=== PATIENT | female | born 2000 | race Caucasian/White ===

== ENCOUNTER 2021-05-10 14:37 | Observation (INO) ==
[2021-05-10 15:18] LABS: Hematocrit (blood only) 35.8 % (37-47); Hemoglobin 11.3 g/dL (12.0-16.0); Mean Corpuscular Hemoglobin 22.7 pg (25-34); Mean Corpuscular Hgb Conc 31.6 g/dL (32-36); Platelet Count 436 K/uL (130-400); RDW Coefficient of Variation 14.3 % (11.5-14.5); RDW Standard Deviation 37.6 fL (36.4-46.3); Red Blood Count 4.97 M/uL (4.2-5.4); White Blood Count 11.24 K/uL (4.8-10.8)
--- NOTE | 2021-05-10 15:25 | XRay Report ---
KUB CLINICAL HISTORY: Generalized abdominal pain. Constipation. FINDINGS: 2 AP supine abdominal radiographs are obtained. No prior studies are available for comparis on at the time of dictation. There is a nonobstructed abdominal bowel gas pattern. No significant fec al retention is seen throughout the colon. No evidence of intraperitoneal free air is seen on these s upine images. There is no radiographic evidence of nephrolithiasis. An indeterminant 2.2 cm radiodens ity projects over the right upper quadrant overlying the expected location of the adrenal gland. The bony structures appear intact. IMPRESSION: 1. No acute abnormality is identified. 2. A 2.2 cm calcification projects over the right upper quadrant overlying the expected location of t he adrenal gland. This could represent an adrenal calcification, or possibly hyperdense ingested mate rial. Clinical correlation will be required. Consider a follow-up radiograph in several days' time fo r reevaluation. Electronically signed by: Erich Lima M.D. 05/10/2021 3:23 PM
[2021-05-10 15:36] LABS: Calcium 9.2 mg/dl (8.5-10.1); Creatinine Clr Calc Pharmacy 129.4 ml/min; Est GFR (African American) 143.5 ml/min; Est GFR (Non-African American) 123.9 ml/min; Potassium 3.7 mmol/L (3.5-5.1)
[2021-05-10] MEDS ORDERED: ONDANSETRON INJ 2 MG/ML 2 ML VIAL IV STA ×2 (16:08→20:10)
[2021-05-10] MEDS ORDERED: SODIUM CHLORIDE 0.9% 1000ML 1,000 ML IV STA ×2 (16:08→20:10)
[2021-05-10 16:39] LABS: Albumin Level 3.9 gm/dl (3.4-5.0); Bilirubin,Total 0.4 mg/dl (0.2-1.0); Total Protein 7.7 gm/dl (6.0-8.3)
[2021-05-10 18:28] LABS: Appearance Urine Clear (Clear); Bilirubin Urine Negative (Negative); Blood Urine Negative (Negative); Color Urine Yellow; Glucose Urine UA Negative (Negative); Ketones Urine Trace (Negative); Leukocyte Esterase Urine Negative (Negative); Nitrite Urine Negative (Negative); Protein Urine Negative (Negative); Specific Gravity Urine 1.011 (1.000-1.030); Urobilinogen Urine Negative (Negative)
[2021-05-10] MEDS ORDERED: OPTIRAY 320 100ml IV ONE (18:47)
--- NOTE | 2021-05-10 18:47 | Emergency Department Note ---
Impression & Plan Bilateral lower abdominal pain, Leukocytosis ED Provider Note INFORMANT: Patient ED PROVIDER(S): Reddy Marshall MD CHIEF COMPLAINT: Abdominal pain PLAN: Disposition: Admitted Condition: Good Outpatient prescription management: none Referral: None MEDICAL DECISION MAKING: Patient presented to emergency room because of lower abdominal pain and concerns about possible bowel blockage. She has not had a surgical history of our known history of SBO. She had lower abdominal discomfort. Blood work was obtained and she was noted to have a mild leukocytosis. Chemistry panel including LFTs and lipase was negative. Urinalysis unremarkable. Patient not . KUB questioned in right upper quadrant calcification. The patient was prepped for CT imaging. Patient did receive IV normal saline. Patient underwent CT imaging and this showed significant inflammation and inflammatory change around the terminal ileum. Radiology raised concerns for phonatory bowel disease. No per foration noted. The patient was then noted to feel feverish. Her temperature was taken and was 37.9. Because of this she was given a dose of IV Toradol. She was reassessed. Maintenance fluids were started and the patient was noting some more nausea. She was given IV Zofran. Case was discussed with Dr. Jaffe of gastroenterology. In light of the CT findings and fever it was felt that blood cultures and observation with consultation in the hospital was most appropriate. Blood cultures and procalcitonin ordered. Stool studies including C. difficile ordered. Patient was in agreement with plan. Consultation was made with Dr. Michael Mcgill of the [facility] service. Patient was evaluated in the ER for further management. Triage Nursing notes reviewed and agree them. Vital Signs: reviewed and remarkable for no significant abnormalities Differential diagnosis: Appendicitis, IBS, constipation, impaction, obstruction, ovarian cyst, ovarian torsion, ectopic , TOA, PID, infections, diverticulitis, UTI, mes enteric ischemia, aortic pathology, inflammatory bowel disease, renal colic, PUD, pancreatitis, biliary pathology, hernia, volvulus, constipation, as well as other pathologies. Diagnostics interpreted by me: ECG: none Cardiac Monitoring: none Imaging studies: HPI: The patient is a 20 year old female who presents to the Emergency Room with complaints of abdominal pain and concerns for possible bowel blockage. Patient notes a history of an impaction but denies any abdominal surgeries or history of SBO. Started for about a week. And is persisting. The patient also notes the following associated symptoms, mild lower back discomfort, nausea, decreased appetite, intermittent constipation. The patient has found no relieving factors. Current pain is rated as 4/10. Pt denies LOC, headache, fevers, chills, diaphoresis, visual changes, neck pain, chest pain, breathing difficulties, vomiting, melena, hematochezia, urinary symptoms, numbness, weak ness, lymphadenopathy, rash, or other complaints. ROS: See above HPI for pertinent positives & negatives. A total of 10 systems reviewed and were otherwise negative. PAST MEDICAL HISTORY:See Below , patient denies PAST SURGICAL HISTORY:See Below, patient denies FAMILY HISTORY:See Below SOCIAL HISTORY:See Below, [facility] student [place] MEDICATIONS:See Below ALLERGIES:See Below VITALS:See Below PHYSICAL EXAMINATION: GENERAL: Awake, alert, mildly uncomfortable-appearing, in no distress HENT: Normocephalic, atraumatic. Oropharynx unremarkable. EYES: Normal conjunctiva. Sclera non-icteric. NECK: Inspection normal. Non-tender. Supple. No nuchal rigidity. FROM. No masses. RESPIRATORY: Clear to auscultation. No wheezes. No rales. Normal respiratory effort. CARDIAC: Normal rate. Normal rhythm. No murmurs. No rubs. Extremities warm and well perfused. Pulses equal. No JVD. GI: Soft, non-distended. Mild bilateral lower tenderness to palpation. No rebound or guarding. No masses. RECTAL: Deferred. MUSCULOSKELETAL: Atraumatic. Chest examination reveals no tenderness. The back is symmetrical on inspection without obvious abnormality. There is no CVA tenderness to palpation. No joint edema. LOWER EXTREMITIES: Calves are equal size bilaterally and non-tender. No edema. No discoloration. NEURO: Normal sensorium. No sensory or motor deficits noted. SKIN: No rash or jaundice noted. Reddy Marshall MD Past Med/Surg History Social History Smoking Status: Never smoker Feels Safe at Home: Yes Allergies Allergies Allergy/AdvReac Type Severity Reaction Status Date / Time apple Allergy Severe SEE COMMENT Verified 05/10/21 16:57 carrot Allergy Severe SEE COMMENT Verified 05/10/21 16:57 celery Allergy Severe SEE COMMENT Verified 05/10/21 16:57 hoyt Allergy Severe SEE COMMENT Verified 05/10/21 16:57 kiwi Allergy Severe SEE COMMENT Verified 05/10/21 16:57 tree nut Allergy Severe SEE COMMENT Verified 05/10/21 16:57 pollen extracts Allergy Intermediate ITCHY Verified 05/10/21 16:57 EYES, SNEEZING, CONGESTION shellfish derived Allergy Unknown POSITIVE Verified 05/10/21 16:57 ALLERGY TEST A SMALL CHILD Home Meds Home Medications Medication Instructions Recorded Confirmed No Known Home Medications 05/10/21 05/10/21 Results & Data (ED) Vital Signs Vital Signs - 24 hr 05/10/21 14:42 05/10/21 16:17 05/10/21 18:00 Temperature 36.6 C Temperature Source Temporal Artery Scan Pulse Rate 129 H Pulse Rate [Right Finger] 109 H 99 H Pulse Rhythm [Right Finger] Pulse Strength [Right Finger] Respiratory Rate 18 18 18 Respiratory Effort / Characteristics Non-Labored Spontaneous Non-Labored Spontaneous Respiratory Depth Normal Normal Respiratory Pattern Blood Pressure 125/78 Blood Pressure [Right Arm] 119/80 123/66 Blood Pressure Mean 93 Blood Pressure Mean [Right Arm] 93 85 Blood Pressure Position Sitting Blood Pressure Position [Right Arm] Lying Pulse Oximetry 97 98 99 Oxygen Delivery Method Room Air Room Air Sepsis Recent Fever Within 48 Hours No Sepsis New/Unexplained Change in Mental Status No Sepsis Action Taken by Nursing No Action Required 05/10/21 18:59 05/10/21 20:00 Temperature 37.9 C H 37.1 C Temperature Source Oral Oral Pulse Rate Pulse Rate [Right Finger] 18 L 75 Pulse Rhythm [Right Finger] Regular Regular Pulse Strength [Right Finger] Normal Normal Respiratory Rate 18 18 Respiratory Effort / Characteristics Non-Labored Spontaneous Non-Labored Spontaneous Respiratory Depth Normal Normal Respiratory Pattern Regular Blood Pressure Blood Pressure [Right Arm] 119/65 121/64 Blood Pressure Mean Blood Pressure Mean [Right Arm] 83 83 Blood Pressure Position Blood Pressure Position [Right Arm] Sitting Lying Pulse Oximetry 98 100 Oxygen Delivery Method Room Air Room Air Sepsis Recent Fever Within 48 Hours Sepsis New/Unexplained Change in Mental Status Sepsis Action Taken by Nursing Laboratory Data Result diagrams: 05/10/21 15:05 05/10/21 15:05 Lab Results 05/10/21 05/10/21 05/10/21 Range/Units 15:05 15:05 15:05 WBC 11.24 H (4.8-10.8) K/uL RBC 4.97 (4.2-5.4) M/uL Hgb 11.3 L (12.0-16.0) g/dL Hct 35.8 L (37-47) % MCV 72.0 L (80-100) fL MCH 22.7 L (25-34) pg MCHC 31.6 L (32-36) g/dL RDW Std Deviation 37.6 (36.4-46.3) fL RDW Coeff of Leo 14.3 (11.5-14.5) % Plt Count 436 H (130-400) K/uL MPV 8.0 (7.4-10.4) fL Sodium 136 (136-145) mmol/L Potassium 3.7 (3.5-5.1) mmol/L Chloride 100 (98-107) mmol/L Carbon Dioxide 27 (21-32) mmol/L Anion Gap 9 (3-11) BUN 7 (6-23) mg/dl Creatinine 0.70 (0.6-1.2) mg/dl Est Cr Clr Drug Dosing 129.4 ml/min Est GFR ( Amer) 143.5 ml/min Est GFR (Non-Af Amer) 123.9 ml/min BUN/Creatinine Ratio 10.0 (10-20) Glucose 96 (70-99(Fasting)) mg/dl Calcium 9.2 (8.5-10.1) mg/dl Total Bilirubin 0.4 (0.2-1.0) mg/dl Direct Bilirubin 0.0 (0-0.2) mg/dl AST 10 L (13-39) U/L ALT 8 (7-52) U/L Alkaline Phosphatase 81 (34-104) U/L C-Reactive Protein (0-0.5) mg/dl Total Protein 7.7 (6.0-8.3) gm/dl Albumin 3.9 (3.4-5.0) gm/dl Lipase 14 (11-82) U/L Procalcitonin (0-0.5) ng/ml Urine Color Urine Appearance (Clear) Urine pH (4.5-7.5) Ur Specific [place] (1.000-1.030) Urine Protein (Negative) Urine Glucose (UA) (Negative) Urine Ketones (Negative) Urine Blood (Negative) Urine Nitrite (Negative) Urine Bilirubin (Negative) Urine Urobilinogen (Negative) Ur Leukocyte Esterase (Negative) POC Ur Test (NEG) SARS-CoV-2, RNA, NAAT (NEGATIVE) 05/10/21 05/10/21 05/10/21 Range/Units 15:05 18:20 18:20 WBC (4.8-10.8) K/uL RBC (4.2-5.4) M/uL Hgb (12.0-16.0) g/dL Hct (37-47) % MCV (80-100) fL MCH (25-34) pg MCHC (32-36) g/dL RDW Std Deviation (36.4-46.3) fL RDW Coeff of Leo (11.5-14.5) % Plt Count (130-400) K/uL MPV (7.4-10.4) fL Sodium (136-145) mmol/L Potassium (3.5-5.1) mmol/L Chloride (98-107) mmol/L Carbon Dioxide (21-32) mmol/L Anion Gap (3-11) BUN (6-23) mg/dl Creatinine (0.6-1.2) mg/dl Est Cr Clr Drug Dosing ml/min Est GFR ( Amer) ml/min Est GFR (Non-Af Amer) ml/min BUN/Creatinine Ratio (10-20) Glucose (70-99(Fasting)) mg/dl Calcium (8.5-10.1) mg/dl Total Bilirubin (0.2-1.0) mg/dl Direct Bilirubin (0-0.2) mg/dl AST (13-39) U/L ALT (7-52) U/L Alkaline Phosphatase (34-104) U/L C-Reactive Protein 15.32 H (0-0.5) mg/dl Total Protein (6.0-8.3) gm/dl Albumin (3.4-5.0) gm/dl Lipase (11-82) U/L Procalcitonin (0-0.5) ng/ml Urine Color Yellow Urine Appearance Clear (Clear) Urine pH 6.0 (4.5-7.5) Ur Specific [place] 1.011 (1.000-1.030) Urine Protein Negative (Negative) Urine Glucose (UA) Negative (Negative) Urine Ketones Trace H (Negative) Urine Blood Negative (Negative) Urine Nitrite Negative (Negative) Urine Bilirubin Negative (Negative) Urine Urobilinogen Negative (Negative) Ur Leukocyte Esterase Negative (Negative) POC Ur Test NEG (NEG) SARS-CoV-2, RNA, NAAT (NEGATIVE) 05/10/21 05/10/21 Range/Units 20:40 20:46 WBC (4.8-10.8) K/uL RBC (4.2-5.4) M/uL Hgb (12.0-16.0) g/dL Hct (37-47) % MCV (80-100) fL MCH (25-34) pg MCHC (32-36) g/dL RDW Std Deviation (36.4-46.3) fL RDW Coeff of Leo (11.5-14.5) % Plt Count (130-400) K/uL MPV (7.4-10.4) fL Sodium (136-145) mmol/L Potassium (3.5-5.1) mmol/L Chloride (98-107) mmol/L Carbon Dioxide (21-32) mmol/L Anion Gap (3-11) BUN (6-23) mg/dl Creatinine (0.6-1.2) mg/dl Est Cr Clr Drug Dosing ml/min Est GFR ( Amer) ml/min Est GFR (Non-Af Amer) ml/min BUN/Creatinine Ratio (10-20) Glucose (70-99(Fasting)) mg/dl Calcium (8.5-10.1) mg/dl Total Bilirubin (0.2-1.0) mg/dl Direct Bilirubin (0-0.2) mg/dl AST (13-39) U/L ALT (7-52) U/L Alkaline Phosphatase (34-104) U/L C-Reactive Protein (0-0.5) mg/dl Total Protein (6.0-8.3) gm/dl Albumin (3.4-5.0) gm/dl Lipase (11-82) U/L Procalcitonin < 0.05 (0-0.5) ng/ml Urine Color Urine Appearance (Clear) Urine pH (4.5-7.5) Ur Specific [place] (1.000-1.030) Urine Protein (Negative) Urine Glucose (UA) (Negative) Urine Ketones (Negative) Urine Blood (Negative) Urine Nitrite (Negative) Urine Bilirubin (Negative) Urine Urobilinogen (Negative) Ur Leukocyte Esterase (Negative) POC Ur Test (NEG) SARS-CoV-2, RNA, NAAT NEGATIVE (NEGATIVE) Administered Medications Sodium Chloride (Nss 1000ml) 1,000 mls @ 125 mls/hr IV .Q8H STA Stop: 05/11/21 04:09 Last Admin: 05/10/21 20:14 Dose: 125 mls/hr Documented by: [id number] Discontinued Medications Sodium Chloride (Nss 1000ml) 1,000 mls @ 999 mls/hr IV .Q1H1M STA Stop: 05/10/21 17:08 Last Infusion: 05/10/21 19:48 Dose: 0 mls/hr Documented by: [id number] Infusion: 05/10/21 17:21 Dose: 0 mls/hr Documented by: [id number] Admin: 05/10/21 16:15 Dose: 999 mls/hr Documented by: [id number] Ioversol (Optiray 320 100ml) 93 ml IV ONCE ONE Stop: 05/10/21 18:48 Last Admin: 05/10/21 18:53 Dose: 93 ml Documented by: [id number] Ketorolac Tromethamine (Ketorolac Tromethamine 15 Mg/Ml Vial) 15 mg IV NOW STA Stop: 05/10/21 19:05 Last Admin: 05/10/21 19:09 Dose: 15 mg Documented by: [id number] Ondansetron HCl (Ondansetron Inj 2 Mg/Ml 2 Ml Vial) 4 mg IV NOW STA Stop: 05/10/21 16:09 Last Admin: 05/10/21 16:15 Dose: 4 mg Documented by: [id number] Ondansetron HCl (Ondansetron Inj 2 Mg/Ml 2 Ml Vial) 4 mg IV NOW STA Stop: 05/10/21 20:11 Last Admin: 05/10/21 20:14 Dose: 4 mg Documented by: [id number] Imaging Data Radiologist's Impression: KUB X-Ray 05/10/21 14:46 KUB CLINICAL HISTORY: Generalized abdominal pain. Constipation. FINDINGS: 2 AP supine abdominal radiographs are obtained. No prior studies are available for comparison at the time of dictation. There is a nonobstructed abdominal bowel gas pattern. No significant fecal retention is seen throughout the colon. No evidence of intraperitoneal free air is seen on these supine images. There is no radiographic evidence of nephrolithiasis. An indeterminant 2.2 cm radiodensity projects over the right upper quadrant overlying the expected location of the adrenal gland. The bony structures appear intact. IMPRESSION: 1. No acute abnormality is identified. 2. A 2.2 cm calcification projects over the right upper quadrant overlying the expected location of the adrenal gland. This could represent an adrenal calcification, or possibly hyperdense ingested material. Clinical correlation will be required. Consider a follow-up radiograph in several days' time for reevaluation. Electronically signed by: Erich Lima M.D. 05/10/2021 3:23 PM Abdomen/Pelvis CT 05/10/21 16:08 CT abd pelvis oral and IV con CLINICAL HISTORY: lower abd pain COMPARISON STUDY: No previous studies for comparison. CT DOSE: 351.71 mGy.cm TECHNIQUE: Standard CT of the Abdomen and Pelvis was performed with IV contrast. A dose lowering technique was utilized adhering to the principles of ALARA. Contrast Volume: Optiray 320, 93 ml. The patient received oral contrast. FINDINGS: Lung base: The lung bases are clear. Abdominal cavity: There is no evidence for abdominal mass, adenopathy or ascites. Liver: There is homogeneous attenuation of the liver parenchyma. There is no evidence for enhancing mass lesion. Spleen: There is homogeneous attenuation of the splenic parenchyma. There is no enhancing mass lesion. Pancreas: There is homogeneous attenuation of the pancreatic parenchyma. There is no evidence for mass lesion or peripancreatic fluid collection. Gall Bladder: The gallbladder is well distended with no evidence for intraluminal calculi, wall thickening or pericholecystic edema. Adrenal glands: There is abnormal calcification of the right adrenal gland when compared to the left. There is no evidence for enhancing mass lesion. Kidneys: There is homogeneous attenuation of the renal parenchyma bilaterally. There is no evidence for renal calculus or hydronephrosis. There is no evidence for enhancing mass. Bowel: Oral contrast present within the stomach, throughout the small bowel and into the cecum. There is very prominent mucosal thickening present involving the distal 15 cm of the distal and terminal ileum. These findings are most characteristic of Crohn's disease. The remaining bowel loops are normally placed within the abdomen and pelvis without evidence for dilatation or obstruction. There is no evidence for mass lesion. There are no other inflammatory changes present. There is no evidence for free air. There is a normal appendix in the right lower quadrant. Bladder: The bladder is within normal limits with no evidence for focal mass, calculus or diverticulum. : There is no evidence for pelvic mass or adenopathy. There is small to moderate amount free fluid seen within the cul-de-sac which is most likely physiologic. There are cystic changes of the ovaries bilaterally. Vasculature: There is no evidence for aneurysmal dilatation of the abdominal aorta. Osseous structures: There is no acute osseous pathology. IMPRESSION: 1. Diffuse mucosal thickening involving the distal 15 cm of the distal and terminal ileum with the findings most characteristic of the presence of Crohn's disease. 2. Normal appendix. 3. Additional nonacute findings are delineated above. ACT 112: Negative or not required by law. Electronically signed by: Gm Hyatt M.D. 05/10/2021 7:27 PM Discharge Plan Visit Data Chief Complaint: Flank Pain Stated Complaint: LOWER ABDOMINAL AND BACK PAIN, LOSS OF APPETITE ED Provider: Reddy Marshall Discharge Problem: Bilateral lower abdominal pain, Leukocytosis Forms Stand Alone Forms: [facility] Prescriptions Prescriptions: No Action No Known Home Medications RF: 0 Referrals Referrals: PCP,NO [Primary Care Provider] -
[2021-05-10] MEDS ORDERED: KETOROLAC TROMETHAMINE 15 MG/ML VIAL IV STA (19:04)
--- NOTE | 2021-05-10 19:28 | CT Scan Report ---
CT abd pelvis oral and IV con CLINICAL HISTORY: lower abd pain COMPARISON STUDY: No previous studies for comparison. CT DOSE: 351.71 mGy.cm TECHNIQUE: Standard CT of the Abdomen and Pelvis was performed with IV contrast. A dose lowering srinivas hnique was utilized adhering to the principles of ALARA. Contrast Volume: Optiray 320, 93 ml. The patient received oral contrast. FINDINGS: Lung base: The lung bases are clear. Abdominal cavity: There is no evidence for abdominal mass, adenopathy or ascites. Liver: There is homogeneous attenuation of the liver parenchyma. There is no evidence for enhancing m ass lesion. Spleen: There is homogeneous attenuation of the splenic parenchyma. There is no enhancing mass lesion . Pancreas: There is homogeneous attenuation of the pancreatic parenchyma. There is no evidence for mas s lesion or peripancreatic fluid collection. Gall Bladder: The gallbladder is well distended with no evidence for intraluminal calculi, wall thick ening or pericholecystic edema. Adrenal glands: There is abnormal calcification of the right adrenal gland when compared to the left. There is no evidence for enhancing mass lesion. Kidneys: There is homogeneous attenuation of the renal parenchyma bilaterally. There is no evidence f or renal calculus or hydronephrosis. There is no evidence for enhancing mass. Bowel: Oral contrast present within the stomach, throughout the small bowel and into the cecum. There is very prominent mucosal thickening present involving the distal 15 cm of the distal and terminal i leum. These findings are most characteristic of Crohn's disease. The remaining bowel loops are normally placed within the abdomen and pelvis without evidence for dila tation or obstruction. There is no evidence for mass lesion. There are no other inflammatory changes present. There is no evidence for free air. There is a normal appendix in the right lower quadrant. Bladder: The bladder is within normal limits with no evidence for focal mass, calculus or diverticulu m. : There is no evidence for pelvic mass or adenopathy. There is small to moderate amount free fluid seen within the cul-de-sac which is most likely physiologic. There are cystic changes of the ovaries bilaterally. Vasculature: There is no evidence for aneurysmal dilatation of the abdominal aorta. Osseous structures: There is no acute osseous pathology. IMPRESSION: 1. Diffuse mucosal thickening involving the distal 15 cm of the distal and terminal ileum with the fi ndings most characteristic of the presence of Crohn's disease. 2. Normal appendix. 3. Additional nonacute findings are delineated above. ACT 112: Negative or not required by law. Electronically signed by: Gm Hyatt M.D. 05/10/2021 7:27 PM
--- NOTE | 2021-05-10 20:48 | History & Physical Report ---
Date of Service May 10, 2021 Assessment & Plan (1) Crohn disease: Plan: Suspected Crohn's disease: History of diarrhea and abdominal cramping for several years, with worsening of such over the last week. CTAP on admission reveals terminal ileum mucosal thickening suspicious for Crohn's disease. CRP elevated to 15.32. Crohn's Disease Severity Index suggests mild to moderately active Crohn's disease; symptoms suggest moderate disease. Given relatively benign abdominal exam and tolerating food, will not start IV steroids at this time; consider initiation if CRP or clinical sypmtoms worsen. IBD panel ordered, as well as stool PCR and C diff. GI consult ordered for AM. Will eventually need colonoscopy for tissue sampling. Blood cultures collected; if continues to have fevers or worsening WBC count would initiate Abx with coverage for intraabdominal pathogens. Code Status: FULL CODE FEN: Regular diet DVT ppx: ambulate on demand, low risk Dispo: Med/Surg History of Present Illness Chief Complaint: abdominal pain Primary Care Provider: NO PCP 20 yo F no significant PMHx presented to the ER for 1 day of severe lower abdominal pain with associated nausea, chills, and diarrhea. She denies blood in her stools. Reports a long standing history of diarrhea, at least 2 episodes daily for years, with up to 5 episodes a day depending on dietary modifications. Has seen GI in the past around age 18, and was to have colonoscopy, however inadequate bowel prep and patient was lost to follow up. She reports that over the last week her abdominal bloating and pain has been worse than usual, with the worst pain occurring today while walking to class, prompting her evaluation. She denies a history of IBD in the family, nor any other immune-mediated disorders. Notable findings in ER include WBC count elevated to 11.24, plts 436, patient near-febrile to 37.9C with sinus tachycardia. CTAP showed diffuse distal and terminal ileum mucosal thickening suggestive of Crohn's disease. Case discussed with on-call Account Officer who recommended admission and observation given near-fever and leukocytosis. Allergies Allergy/AdvReac Type Severity Reaction Status Date / Time apple Allergy Severe SEE COMMENT Verified 05/10/21 16:57 carrot Allergy Severe SEE COMMENT Verified 05/10/21 16:57 celery Allergy Severe SEE COMMENT Verified 05/10/21 16:57 hoyt Allergy Severe SEE COMMENT Verified 02/15/22 16:57 kiwi Allergy Severe SEE COMMENT Verified 05/10/21 16:57 tree nut Allergy Severe SEE COMMENT Verified 05/10/21 16:57 pollen extracts Allergy Intermediate ITCHY Verified 05/10/21 16:57 EYES, SNEEZING, CONGESTION shellfish derived Allergy Unknown POSITIVE Verified 05/10/21 16:57 ALLERGY TEST A SMALL CHILD Home Medications Medication Instructions Recorded Confirmed Type No Known Home Medications 05/10/21 05/10/21 History Past Med/Surg History Surgical History (Updated 05/10/21 @ 23:50 by Anju Baker RN) H/O wisdom tooth extraction Social History Smoking Status: Never smoker Hx Alcohol Use: Yes Alcohol type: beer, wine and hard liquor Hx Substance Use: No Preferred Language: Khmer Project Mgr Required: No Beliefs That Will Affect Care: None Current Living Situation Comment: Apartment with three roomates Other Information That Helps Us Care for You: No Feels Safe at Home: Yes Safety Concerns: Feels Safe At This Time Assistive Devices: None Review of Systems Review of Systems: All systems reviewed & are unremarkable except as noted in HPI & below Constitutional: + chills and + malaise; no fever Respiratory: no cough and no dyspnea Cardiovascular: no chest pain, no palpitations and no edema Gastrointestinal: + abdominal pain and + diarrhea/loose stools; no constipation Genitourinary: no dysuria and no hematuria Physical Exam Constitutional: WD/WN, vitals as above Eyes: PERRL, conjunctivae normal, anicteric sclerae ENMT: external ear and nose normal, oropharynx normal Neck: normal visual inspection Respiratory: normal respiratory effort, lungs clear to auscultation Cardiovascular: RRR, no murmur, no edema Gastrointestinal (Abdomen): abdomen soft, diffusely mildly tender with moderate tenderness in RLQ Musculoskeletal: no cyanosis or clubbing, extremities motor strength 5/5 Skin: no rashes, warm and dry Neurologic: AAOx3, normal speech. No focal motor or sensory deficits. Psychiatric: A+Ox3, euthymic affect Results & Data Results & Data ([facility]) Vital Signs (Past 12 Hours) Vital Signs Temp Pulse Pulse Resp BP BP Pulse Ox 05/10/21 18:59 37.9 C H 18 L 18 119/65 98 05/10/21 18:00 99 H 18 123/66 99 05/10/21 16:17 109 H 18 119/80 98 05/10/21 14:42 36.6 C 129 H 18 125/78 97 Supervising Physician Co-Signing Physician Notes Attending addendum: I have physically seen this patient, have supervised the medical residents activities, and agree with the H&P unless as otherwise noted. Assessment and Plan: Suspected Crohn's disease- Diarrhea abdominal cramping for several years, is worsening over the past week CT with mucosal thickening in the terminal ileum suggestive of Crohn's moderate level disease based on that plus CRP 15.32 Order IBD panel Stool PCR panel Consult gastroenterology Remaining orders and notations as noted Resident Activity Tracking Resident Involvement: Resident Care Provided Care Provided: Adult Hospital Medicine
[2021-05-10] MEDS ORDERED: ONDANSETRON INJ 2 MG/ML 2 ML VIAL IV PRN (23:40)
[2021-05-10] MEDS ORDERED: ACETAMINOPHEN 325 MG TAB PO PRN (23:40)
[2021-05-11 06:13] LABS: Basophils # (auto) 0.03 K/uL (0-0.2); Basophils % (auto) 0.4 %; Eosinophils # (auto) 0.12 K/uL (0-0.5); Eosinophils % (auto) 1.6 %; Hematocrit (blood only) 29.4 % (37-47); Hemoglobin 9.2 g/dL (12.0-16.0); Immature Granulocytes # (auto) 0.02 K/uL (0.00-0.02); Immature Granulocytes % (auto) 0.3 %; Lymphocytes # (auto) 1.33 K/uL (1.2-3.4); Lymphocytes % (auto) 17.8 %; Mean Corpuscular Hemoglobin 22.6 pg (25-34); Mean Corpuscular Hgb Conc 31.3 g/dL (32-36); Mean Corpuscular Volume 72.2 fL (80-100); Mean Platelet Volume 7.9 fL (7.4-10.4); Monocytes # (auto) 0.74 K/uL (0.11-0.59); Monocytes % (auto) 9.9 %; Neutrophils # (auto) 5.22 K/uL (1.4-6.5); Platelet Count 327 K/uL (130-400); RDW Coefficient of Variation 14.4 % (11.5-14.5); RDW Standard Deviation 38.7 fL (36.4-46.3); Red Blood Count 4.07 M/uL (4.2-5.4); White Blood Count 7.46 K/uL (4.8-10.8)
[2021-05-11 07:09] LABS: RBC Morphology Unremarkable
[2021-05-11] MEDS ORDERED: MoRPHine SULFATE 2 MG/ML CARP IV PRN (07:57)
--- NOTE | 2021-05-11 09:04 | Gastrointestinal Consultation ---
Date of Consultation May 11, 2021 Assessment & Plan (1) Bilateral lower abdominal pain: 20 year old female admitted w/ severe lower abd pain, diarrhea and fevers, elevated CRP, CTAP w/ diffuse mucosal thickening involving the distal 15 cm of the distal and terminal ileum with the findings most characteristic of the presence of Crohn's disease. - Can have clear liquids today - NPO after midnight - Colonoscopy tomorrow, prep with miralax and dulcolax as pt reports failed prep in past with golytely Thank you for allowing us to participate in the care of this patient. Please call with any acute changes, questions or concerns. Please see addendum below with additional recommendation from my supervising physician. Supervising Physician Co-Signing Physician Notes I have personally seen and examined the patient with PRABHAKAR Damico. Her note reflects my exam and findings. I agree with her impression and plan. Plan for colonoscopy tomorrow after prep. David Szymanski M.D. History of Present Illness Reason for Consultation: abd pain, abnormal imaging Requesting Physician: Rob Attending Physician: Chad Rivas MD History of Present Illness 20 year old female with history of eczema, chronic diarrhea who is admitted through the ED with abnormal imaging, pain and diarrhea - GI asked to evaluate. She notes a history of chronic diarrhea dating back to childhood. She was evaluated by outside hospital about three years ago and was scheduled to have a colonoscopy. This was canceled due to poor prep and was not rescheduled. She suggests since she has had continued intermittent severe lower abd pain, cramping and intermittent diarrhea. No black or bloody stools. Does not see mucous in her stools. Has had a flare of eczema x 1 month. Has had intermittent fevers. No CP, SOB. CTAP 2021: Diffuse mucosal thickening involving the distal 15 cm of the distal and terminal ileum with the findings most characteristic of the presence of Crohn's disease. 2. Normal appendix. 3. Additional nonacute findings are delineated above. Allergies Allergy/AdvReac Type Severity Reaction Status Date / Time apple Allergy Severe SEE COMMENT Verified 05/10/21 16:57 carrot Allergy Severe SEE COMMENT Verified 05/10/21 16:57 celery Allergy Severe SEE COMMENT Verified 05/10/21 16:57 hoyt Allergy Severe SEE COMMENT Verified 05/10/21 16:57 kiwi Allergy Severe SEE COMMENT Verified 05/10/21 16:57 tree nut Allergy Severe SEE COMMENT Verified 05/10/21 16:57 pollen extracts Allergy Intermediate ITCHY Verified 05/10/21 16:57 EYES, SNEEZING, CONGESTION shellfish derived Allergy Unknown POSITIVE Verified 05/10/21 16:57 ALLERGY TEST A SMALL CHILD Home Medications Medication Instructions Recorded Confirmed Type No Known Home Medications 05/10/21 05/10/21 History Patient History Surgical History (Updated 05/10/21 @ 23:50 by Anju Baker RN) H/O wisdom tooth extraction Social History Smoking Status: Never smoker Hx Alcohol Use: Yes Alcohol type: beer, wine and hard liquor Hx Substance Use: No Preferred Language: Upper Sorbian Manager Private Required: No Beliefs That Will Affect Care: None Current Living Situation Comment: Apartment with three roomates Other Information That Helps Us Care for You: No Feels Safe at Home: Yes Safety Concerns: Feels Safe At This Time Assistive Devices: None Review of Systems Review of Systems: All systems reviewed & are unremarkable except as noted in HPI & below Physical Exam Constitutional: WD/WN, vitals as above Neck: trachea midline, no thyromegaly Respiratory: normal respiratory effort, lungs clear to auscultation Cardiovascular: RRR, no murmur, no edema Gastrointestinal (Abdomen): Inspection/Auscultation: abdomen normal to inspection and normal bowel sounds Percussion/Palpation: + abdomen tender and abdomen soft; no guarding and abdomen not rigid Skin: no rashes, warm and dry Results & Data ([facility]) Vital Signs (Past 12 Hours) Vital Signs Temp Pulse Resp BP Pulse Ox 05/11/21 07:42 36.8 C 83 18 112/72 96 05/10/21 23:41 36.7 C 106 H 15 103/67 99 Laboratory Results 05/11/21 05/11/21 05/10/21 Range/Units 05:41 05:41 22:04 WBC 7.46 (4.8-10.8) K/uL RBC 4.07 L (4.2-5.4) M/uL Hgb 9.2 L (12.0-16.0) g/dL Hct 29.4 L (37-47) % MCV 72.2 L (80-100) fL MCH 22.6 L (25-34) pg MCHC 31.3 L (32-36) g/dL RDW Std Deviation 38.7 (36.4-46.3) fL RDW Coeff of Leo 14.4 (11.5-14.5) % Plt Count 327 (130-400) K/uL MPV 7.9 (7.4-10.4) fL Immature Gran % (Auto) 0.3 % Neut % (Auto) 70.0 % Lymph % (Auto) 17.8 % [place] % (Auto) 9.9 % Eos % (Auto) 1.6 % Baso % (Auto) 0.4 % Neut # (Auto) 5.22 (1.4-6.5) K/uL Lymph # (Auto) 1.33 (1.2-3.4) K/uL [place] # (Auto) 0.74 H (0.11-0.59) K/uL Eos # (Auto) 0.12 (0-0.5) K/uL Baso # (Auto) 0.03 (0-0.2) K/uL Immature Gran # (Auto) 0.02 (0.00-0.02) K/uL RBC Morphology Unremarkable Sodium (136-145) mmol/L Potassium (3.5-5.1) mmol/L Chloride (98-107) mmol/L Carbon Dioxide (21-32) mmol/L Anion Gap (3-11) BUN (6-23) mg/dl Creatinine (0.6-1.2) mg/dl Est Cr Clr Drug Dosing ml/min Est GFR ( Amer) ml/min Est GFR (Non-Af Amer) ml/min BUN/Creatinine Ratio (10-20) Glucose (70-99(Fasting)) mg/dl Calcium (8.5-10.1) mg/dl Total Bilirubin (0.2-1.0) mg/dl Direct Bilirubin (0-0.2) mg/dl AST (13-39) U/L ALT (7-52) U/L Alkaline Phosphatase (34-104) U/L C-Reactive Protein 15.37 H (0-0.5) mg/dl Total Protein (6.0-8.3) gm/dl Albumin (3.4-5.0) gm/dl Lipase (11-82) U/L Procalcitonin (0-0.5) ng/ml Urine Color Urine Appearance (Clear) Urine pH (4.5-7.5) Ur Specific Colp (1.000-1.030) Urine Protein (Negative) Urine Glucose (UA) (Negative) Urine Ketones (Negative) Urine Blood (Negative) Urine Nitrite (Negative) Urine Bilirubin (Negative) Urine Urobilinogen (Negative) Ur Leukocyte Esterase (Negative) POC Ur Test (NEG) Anti-Proteinase 3 Pending Anti-Myeloperoxidase Pending ANCA Pending S.cerevisiae IgG Ab Pending S.cerevisiae IgA Ab Pending SARS-CoV-2, RNA, NAAT (NEGATIVE) 05/10/21 05/10/21 05/10/21 Range/Units 20:46 20:40 18:20 WBC (4.8-10.8) K/uL RBC (4.2-5.4) M/uL Hgb (12.0-16.0) g/dL Hct (37-47) % MCV (80-100) fL MCH (25-34) pg MCHC (32-36) g/dL RDW Std Deviation (36.4-46.3) fL RDW Coeff of Leo (11.5-14.5) % Plt Count (130-400) K/uL MPV (7.4-10.4) fL Immature Gran % (Auto) % Neut % (Auto) % Lymph % (Auto) % [place] % (Auto) % Eos % (Auto) % Baso % (Auto) % Neut # (Auto) (1.4-6.5) K/uL Lymph # (Auto) (1.2-3.4) K/uL [place] # (Auto) (0.11-0.59) K/uL Eos # (Auto) (0-0.5) K/uL Baso # (Auto) (0-0.2) K/uL Immature Gran # (Auto) (0.00-0.02) K/uL RBC Morphology Sodium (136-145) mmol/L Potassium (3.5-5.1) mmol/L Chloride (98-107) mmol/L Carbon Dioxide (21-32) mmol/L Anion Gap (3-11) BUN (6-23) mg/dl Creatinine (0.6-1.2) mg/dl Est Cr Clr Drug Dosing ml/min Est GFR ( Amer) ml/min Est GFR (Non-Af Amer) ml/min BUN/Creatinine Ratio (10-20) Glucose (70-99(Fasting)) mg/dl Calcium (8.5-10.1) mg/dl Total Bilirubin (0.2-1.0) mg/dl Direct Bilirubin (0-0.2) mg/dl AST (13-39) U/L ALT (7-52) U/L Alkaline Phosphatase (34-104) U/L C-Reactive Protein (0-0.5) mg/dl Total Protein (6.0-8.3) gm/dl Albumin (3.4-5.0) gm/dl Lipase (11-82) U/L Procalcitonin < 0.05 (0-0.5) ng/ml Urine Color Urine Appearance (Clear) Urine pH (4.5-7.5) Ur Specific Colp (1.000-1.030) Urine Protein (Negative) Urine Glucose (UA) (Negative) Urine Ketones (Negative) Urine Blood (Negative) Urine Nitrite (Negative) Urine Bilirubin (Negative) Urine Urobilinogen (Negative) Ur Leukocyte Esterase (Negative) POC Ur Test NEG (NEG) Anti-Proteinase 3 Anti-Myeloperoxidase ANCA S.cerevisiae IgG Ab S.cerevisiae IgA Ab SARS-CoV-2, RNA, NAAT NEGATIVE (NEGATIVE) 05/10/21 05/10/21 05/10/21 Range/Units 18:20 15:05 15:05 WBC (4.8-10.8) K/uL RBC (4.2-5.4) M/uL Hgb (12.0-16.0) g/dL Hct (37-47) % MCV (80-100) fL MCH (25-34) pg MCHC (32-36) g/dL RDW Std Deviation (36.4-46.3) fL RDW Coeff of Leo (11.5-14.5) % Plt Count (130-400) K/uL MPV (7.4-10.4) fL Immature Gran % (Auto) % Neut % (Auto) % Lymph % (Auto) % [place] % (Auto) % Eos % (Auto) % Baso % (Auto) % Neut # (Auto) (1.4-6.5) K/uL Lymph # (Auto) (1.2-3.4) K/uL [place] # (Auto) (0.11-0.59) K/uL Eos # (Auto) (0-0.5) K/uL Baso # (Auto) (0-0.2) K/uL Immature Gran # (Auto) (0.00-0.02) K/uL RBC Morphology Sodium (136-145) mmol/L Potassium (3.5-5.1) mmol/L Chloride (98-107) mmol/L Carbon Dioxide (21-32) mmol/L Anion Gap (3-11) BUN (6-23) mg/dl Creatinine (0.6-1.2) mg/dl Est Cr Clr Drug Dosing ml/min Est GFR ( Amer) ml/min Est GFR (Non-Af Amer) ml/min BUN/Creatinine Ratio (10-20) Glucose (70-99(Fasting)) mg/dl Calcium (8.5-10.1) mg/dl Total Bilirubin 0.4 (0.2-1.0) mg/dl Direct Bilirubin 0.0 (0-0.2) mg/dl AST 10 L (13-39) U/L ALT 8 (7-52) U/L Alkaline Phosphatase 81 (34-104) U/L C-Reactive Protein 15.32 H (0-0.5) mg/dl Total Protein 7.7 (6.0-8.3) gm/dl Albumin 3.9 (3.4-5.0) gm/dl Lipase 14 (11-82) U/L Procalcitonin (0-0.5) ng/ml Urine Color Yellow Urine Appearance Clear (Clear) Urine pH 6.0 (4.5-7.5) Ur Specific Colp 1.011 (1.000-1.030) Urine Protein Negative (Negative) Urine Glucose (UA) Negative (Negative) Urine Ketones Trace H (Negative) Urine Blood Negative (Negative) Urine Nitrite Negative (Negative) Urine Bilirubin Negative (Negative) Urine Urobilinogen Negative (Negative) Ur Leukocyte Esterase Negative (Negative) POC Ur Test (NEG) Anti-Proteinase 3 Anti-Myeloperoxidase ANCA S.cerevisiae IgG Ab S.cerevisiae IgA Ab SARS-CoV-2, RNA, NAAT (NEGATIVE) 05/10/21 05/10/21 Range/Units 15:05 15:05 WBC 11.24 H (4.8-10.8) K/uL RBC 4.97 (4.2-5.4) M/uL Hgb 11.3 L (12.0-16.0) g/dL Hct 35.8 L (37-47) % MCV 72.0 L (80-100) fL MCH 22.7 L (25-34) pg MCHC 31.6 L (32-36) g/dL RDW Std Deviation 37.6 (36.4-46.3) fL RDW Coeff of Leo 14.3 (11.5-14.5) % Plt Count 436 H (130-400) K/uL MPV 8.0 (7.4-10.4) fL Immature Gran % (Auto) % Neut % (Auto) % Lymph % (Auto) % [place] % (Auto) % Eos % (Auto) % Baso % (Auto) % Neut # (Auto) (1.4-6.5) K/uL Lymph # (Auto) (1.2-3.4) K/uL [place] # (Auto) (0.11-0.59) K/uL Eos # (Auto) (0-0.5) K/uL Baso # (Auto) (0-0.2) K/uL Immature Gran # (Auto) (0.00-0.02) K/uL RBC Morphology Sodium 136 (136-145) mmol/L Potassium 3.7 (3.5-5.1) mmol/L Chloride 100 (98-107) mmol/L Carbon Dioxide 27 (21-32) mmol/L Anion Gap 9 (3-11) BUN 7 (6-23) mg/dl Creatinine 0.70 (0.6-1.2) mg/dl Est Cr Clr Drug Dosing 129.4 ml/min Est GFR ( Amer) 143.5 ml/min Est GFR (Non-Af Amer) 123.9 ml/min BUN/Creatinine Ratio 10.0 (10-20) Glucose 96 (70-99(Fasting)) mg/dl Calcium 9.2 (8.5-10.1) mg/dl Total Bilirubin (0.2-1.0) mg/dl Direct Bilirubin (0-0.2) mg/dl AST (13-39) U/L ALT (7-52) U/L Alkaline Phosphatase (34-104) U/L C-Reactive Protein (0-0.5) mg/dl Total Protein (6.0-8.3) gm/dl Albumin (3.4-5.0) gm/dl Lipase (11-82) U/L Procalcitonin (0-0.5) ng/ml Urine Color Urine Appearance (Clear) Urine pH (4.5-7.5) Ur Specific Colp (1.000-1.030) Urine Protein (Negative) Urine Glucose (UA) (Negative) Urine Ketones (Negative) Urine Blood (Negative) Urine Nitrite (Negative) Urine Bilirubin (Negative) Urine Urobilinogen (Negative) Ur Leukocyte Esterase (Negative) POC Ur Test (NEG) Anti-Proteinase 3 Anti-Myeloperoxidase ANCA S.cerevisiae IgG Ab S.cerevisiae IgA Ab SARS-CoV-2, RNA, NAAT (NEGATIVE)
[2021-05-11] MEDS: D5W AND NSS 1,000 ML IV SCH ×2 (09:28→21:52)
[2021-05-11] MEDS: methylPREDNISolone 60 MG in SYRINGE 0 ML IV SCH ×2 (09:28→17:10)
[2021-05-11 12:44] LABS: Adenovirus F 40/41 PCR Not Detected (NotDetected); Astrovirus PCR Not Detected (NotDetected); Campylobacter PCR Not Detected (NotDetected); Clostridium diff Toxin A/B PCR Not Detected (NotDetected); Cryptosporidium PCR Not Detected (NotDetected); Cyclospora cayetanensis PCR Not Detected (NotDetected); Entamoeba histolytica PCR Not Detected (NotDetected); Enteroaggregative E.coli(EAEC) Not Detected (NotDetected); Enteropathogenic E.coli (EPEC) Not Detected (NotDetected); Enterotoxigenic E.coli (ETEC) Not Detected (NotDetected); Giardia lamblia PCR Not Detected (NotDetected); Norovirus GI/GII PCR Not Detected (NotDetected); Plesiomonas shigelloides PCR Not Detected (NotDetected); Rotavirus A PCR Not Detected (NotDetected); Salmonella PCR Not Detected (NotDetected); Sapovirus PCR Not Detected (NotDetected); Shiga-like Toxin E.coli (STEC) Not Detected (NotDetected); Shigella/Enteroinvasive E.coli Not Detected (NotDetected); Vibrio cholerae PCR Not Detected (NotDetected); Vibrio species PCR Not Detected (NotDetected); Yersinia enterocolitica PCR Not Detected (NotDetected)
--- NOTE | 2021-05-11 12:55 | Hospitalist Progress Note ---
Date of Service May 11, 2021 Assessment & Plan (1) Crohn disease: Plan: Suspected Crohn's disease. Right lower quadrant discomfort with abnormal CT scan findings. Appreciate gastroenterology consultation. Clear liquid diet for now. Parenteral steroid therapy also ordered. As needed antiemetics and narcotics if needed. Colonoscopy tomorrowMay 12 Plan: Eventual discharge to home Admission and Anticipated Discharge Date Admission Date: May 10, 2021 Subjective Alert and oriented. No acute problems. She denies noticing any hematochezia. Gastroenterology consultation noted. She is on a clear liquid diet and parenteral steroids. She will undergo colonoscopy tomorrowMay 12 Review of Systems Review of Systems: Constitutional-no fever or chills ENT-no blurred vision, no double vision, no epistaxis, no sore throat Respiratory-no cough, no wheezing, no shortness of breath Cardiac-no palpitations, no chest pain, no syncope GI-no nausea, vomiting, diarrhea, melena, hematochezia. Gradually worsening right lower quadrant discomfort -no urinary retention, no urinary incontinence, no dysuria, no hematuria Musculoskeletal-no joint pain, no muscle tenderness Skin-no bruising, no rashes, no pruritus Neuro-no isolated weakness, no paresthesia, no weakness Psych-no depression, no anxiety Physical Exam Physical Exam: General-alert and oriented x3, no fevers, no chills HEENT-head atraumatic and normocephalic, TMs intact bilaterally, pupils equal and reactive to light, extraocular muscles intact Neck-no lymphadenopathy or thyromegaly, trachea midline Chest-clear to auscultation percussion. No rales wheezing or rhonchi Cardiac-regular rate and rhythm, normal S1 and S2, no murmurs Abdomen-normal bowel sounds, no hepatosplenomegaly. Tender right lower quadrant area. No rebound or guarding Extremities-no cyanosis, clubbing, or edema Neuro-cranial nerves II through XII intact, motor and sensory function within normal limits, strength symmetrical 5/5, no focal deficits Psych-normal affect, normal mood Results & Data Results & Data ([facility]) Vital Signs (Past 12 Hours) Vital Signs Temp Pulse Resp BP Pulse Ox 05/11/21 07:42 36.8 C 83 18 112/72 96 Laboratory Results 05/11/21 05:41 05/10/21 15:05 PG Care Time/CCT Total # of Minutes Spent Total Time Spent with Patient: Total time spent is greater than 50% in coordination of care (as documented) at patient's floor/unit and/or counseling patient: Coding Level of Care Code 96875 Subseq Hosp Care Lvl 3 Diagnoses Crohn disease K50.90
[2021-05-11] MEDS ORDERED: POLYETHYLENE (MIRALAX) 17 GM PACK PO ONE ×2 (17:12→22:13)
[2021-05-11] MEDS ORDERED: bisacodyL 5 MG TABEC PO ONE (17:13)
--- NOTE | 2021-05-11 21:10 | Billing Data ---
Date of Service May 11, 2021 Coding Level of Care Code 42981 Initial Inpt Care Lvl 2
[2021-05-12] MEDS: methylPREDNISolone 60 MG in SYRINGE 0 ML IV SCH ×2 (00:40→07:46)
[2021-05-12 06:13] LABS: Hematocrit (blood only) 31.1 % (37-47); Hemoglobin 9.9 g/dL (12.0-16.0); Immature Granulocytes # (auto) 0.02 K/uL (0.00-0.02); Immature Granulocytes % (auto) 0.3 %; Lymphocytes # (auto) 0.76 K/uL (1.2-3.4); Lymphocytes % (auto) 10.2 %; Mean Corpuscular Hemoglobin 22.9 pg (25-34); Mean Corpuscular Hgb Conc 31.8 g/dL (32-36); Mean Platelet Volume 8.1 fL (7.4-10.4); Monocytes # (auto) 0.19 K/uL (0.11-0.59); Monocytes % (auto) 2.6 %; Neutrophils # (auto) 6.47 K/uL (1.4-6.5); Neutrophils % (auto) 86.9 %; Platelet Count 375 K/uL (130-400); RDW Coefficient of Variation 14.2 % (11.5-14.5); RDW Standard Deviation 38.2 fL (36.4-46.3); Red Blood Count 4.32 M/uL (4.2-5.4); White Blood Count 7.44 K/uL (4.8-10.8)
[2021-05-12 06:27] LABS: Anion Gap 5 (3-11); Blood Urea Nitrogen 3 mg/dl (6-23); Calcium 8.9 mg/dl (8.5-10.1); Carbon Dioxide 26 mmol/L (21-32); Chloride 108 mmol/L (98-107); Creatinine Clr Calc Pharmacy 180.9 ml/min; Est GFR (African American) > 150.0 ml/min; Est GFR (Non-African American) 138.4 ml/min; Glucose 162 mg/dl (70-99(Fasting)); Sodium 139 mmol/L (136-145)
[2021-05-12 06:33] LABS: Microcytosis Present
--- NOTE | 2021-05-12 09:21 | Communication Note ---
Date of Service: May 12, 2021 Pt prepped and remains NPO for Colonoscopy today. All questions answered. Please see prior consultation note for other recommendations and plans.
--- NOTE | 2021-05-12 10:07 | Anesthesiology Consultation ---
Date of Service May 12, 2021 Assessment & Plan (1) Encounter for pre-operative examination: Chart Review Chart Review: Acceptable Risk for Surgery History Surgery Operation Date: 05/12/21 16:30 Proposed Procedures p Colonoscopy Dr Stephon Szymanski MD Height/Weight Height: 5 ft 6 in Weight: 72 kg Allergies Allergy/AdvReac Type Severity Reaction Status Date / Time apple Allergy Severe SEE COMMENT Verified 05/12/21 09:38 carrot Allergy Severe SEE COMMENT Verified 05/12/21 09:38 celery Allergy Severe SEE COMMENT Verified 05/12/21 09:38 hoyt Allergy Severe SEE COMMENT Verified 05/12/21 09:38 kiwi Allergy Severe SEE COMMENT Verified 05/12/21 09:38 tree nut Allergy Severe SEE COMMENT Verified 05/12/21 09:38 pollen extracts Allergy Intermediate ITCHY Verified 05/12/21 09:38 EYES, SNEEZING, CONGESTION shellfish derived Allergy Unknown POSITIVE Verified 05/12/21 09:38 ALLERGY TEST A SMALL CHILD Medications Home Medications Medication Instructions Recorded Confirmed Last Taken No Known Home Medications 05/10/21 05/10/21 Unknown Active Medications Generic Name Dose Route Start Last Admin Trade Name Freq PRN Reason Stop Dose Admin Dextrose/Sodium Chloride 1,000 mls @ 80 mls/hr 05/11/21 08:00 05/11/21 21:52 D5w And Nss IV 06/10/21 07:59 80 mls/hr .[id number] ANGELA Administration Methylprednisolone 60 mg/ 0.96 mls @ 1.5 mls/min 05/11/21 08:30 05/12/21 07:46 Syringe IV 06/10/21 08:29 1.5 mls/min Q8H ANGELA Administration NPO Date Last Intake of Fluids: 05/11/21 Time Last Intake of Fluids: 23:30 Date Last Intake of Solids: 05/10/21 Time Last Intake of Solids: 20:00 Past Medical History Medical History (Updated 05/12/21 @ 10:07 by Antione Vallejo MD) Crohn disease Past Surgical History Surgical History H/O wisdom tooth extraction Social History Smoking Status: Never smoker Hx Alcohol Use: Yes Alcohol type: beer, wine and hard liquor alcohol intake frequency: a few times a month Hx Substance Use: No Physical Exam Vital Signs Last Vital Signs Temp 35.8 C L 05/12/21 09:39 Pulse 78 05/12/21 09:39 Resp 18 05/12/21 09:39 BP 125/86 05/12/21 09:39 Pulse Ox 98 05/12/21 09:39 Testing Laboratory Results 05/12/21 05:44 05/12/21 05:44 Urine Color Yellow 05/10/21 18:20 Urine Appearance Clear (Clear) 05/10/21 18:20 Urine pH 6.0 (4.5-7.5) 05/10/21 18:20 Ur Specific [place] 1.011 (1.000-1.030) 05/10/21 18:20 Urine Protein Negative (Negative) 05/10/21 18:20 Urine Glucose (UA) Negative (Negative) 05/10/21 18:20 Urine Ketones Trace (Negative) H 05/10/21 18:20 Urine Nitrite Negative (Negative) 05/10/21 18:20 Ur Leukocyte Esterase Negative (Negative) 05/10/21 18:20 05/10/21 20:07 Aerobic Blood Culture - Preliminary Blood No growth in Aerobic bottle after 24 hours. Anaerobic Blood Culture - Preliminary No growth in Anaerobic bottle after 24 hours. 05/10/21 20:27 Aerobic Blood Culture - Preliminary Blood No growth in Aerobic bottle after 24 hours. Anaerobic Blood Culture - Preliminary No growth in Anaerobic bottle after 24 hours. 05/10/21 18:20 POC Ur Test NEG
[2021-05-12] MEDS ORDERED: PROPOFOL IV EMULSION 10 MG/ML 20 ML VIAL IV ONE (10:22)
[2021-05-12] MEDS ORDERED: LIDOCAINE 2% 2 ML VIAL/AMP(20MG/ML) INFIL ONE (10:22)
[2021-05-12] MEDS ORDERED: MIDAZOLAM HCL 1 MG/ML 2ML VIAL ONE (10:22)
--- NOTE | 2021-05-12 10:22 | History & Physical Report ---
Date of Service May 12, 2021 Assessment & Plan (1) Abnormal CT of the abdomen: Plan: stable for colonoscopy Admission and Anticipated Discharge Date Admission Date: May 10, 2021 History of Present Illness Chief Complaint: abdominal pain/abnormal CT Primary Care Provider: NO PCP pt with hx of abdominal pain and abnormal CT of intestine for colonoscopy Allergies Allergy/AdvReac Type Severity Reaction Status Date / Time apple Allergy Severe SEE COMMENT Verified 05/12/21 09:38 carrot Allergy Severe SEE COMMENT Verified 05/12/21 09:38 celery Allergy Severe SEE COMMENT Verified 05/12/21 09:38 hoyt Allergy Severe SEE COMMENT Verified 05/12/21 09:38 kiwi Allergy Severe SEE COMMENT Verified 05/12/21 09:38 tree nut Allergy Severe SEE COMMENT Verified 05/12/21 09:38 pollen extracts Allergy Intermediate ITCHY Verified 05/12/21 09:38 EYES, SNEEZING, CONGESTION shellfish derived Allergy Unknown POSITIVE Verified 05/12/21 09:38 ALLERGY TEST A SMALL CHILD Home Medications Medication Instructions Recorded Confirmed Type No Known Home Medications 05/10/21 05/10/21 History Past Med/Surg History Medical History (Updated 05/12/21 @ 10:22 by David Szymanski MD) Crohn disease Surgical History H/O wisdom tooth extraction Social History Smoking Status: Never smoker Hx Alcohol Use: Yes Alcohol type: beer, wine and hard liquor Hx Substance Use: No Preferred Language: [place] [employer] Equipment Installer Required: No Beliefs That Will Affect Care: None Current Living Situation Comment: Apartment with three roomates Other Information That Helps Us Care for You: No Feels Safe at Home: Yes Safety Concerns: Feels Safe At This Time Assistive Devices: None Physical Exam Constitutional: WD/WN, vitals as above Respiratory: normal respiratory effort, lungs clear to auscultation Cardiovascular: RRR, no murmur, no edema Gastrointestinal (Abdomen): normal bowel sounds, soft, nontender, no hepatosplenomegaly Results & Data ([facility]) Vital Signs (Past 12 Hours) Vital Signs Temp Pulse Resp BP Pulse Ox 05/12/21 09:39 35.8 C L 78 18 125/86 98 05/12/21 08:22 36.4 C L 71 16 104/66 96 Code Status & VTE Plan VTE Prophylaxis Plan VTE Prophylaxis will be ordered: No
--- NOTE | 2021-05-12 10:59 | GI REPORT ---
Patient Name: Taryn Eckert Procedure Date: 05/12/2021 10:25 AM Date of : 2000 Admit Type: Inpatient Age: 20 Gender: Female Attending MD: David Szymanski MD Procedure: Colonoscopy Providers: David Szymanski MD Referring MD: Chad Rivas Indications: Generalized abdominal pain, Abnormal CT of the GI tract Medicines: See the Anesthesia note for documentation of the administered medications Complications: No immediate complications. Estimated Blood Loss: Estimated blood loss was minimal. Procedure: Pre-Anesthesia Assessment: - Prior to the procedure, a History and Physical was performed, and patient medications, allergies and sensitivities were reviewed. The patient's tolerance of previous anesthesia was reviewed. - The risks and benefits of the procedure and the sedation options and risks were discussed with the patient. All questions were answered and informed consent was obtained. - Patient identification and proposed procedure were verified prior to the procedure by the physician and the nurse. The procedure was verified in the pre-procedure area. - Pre-procedure physical examination revealed no contraindications to sedation. - After reviewing the risks and benefits, the patient was deemed in satisfactory condition to undergo the procedure. After I obtained informed consent, the scope was passed under direct vision. Throughout the procedure, the patient's blood pressure, pulse, and oxygen saturations were monitored continuously. The Colonoscope was introduced through the anus and advanced to the terminal ileum, with identification of the appendiceal orifice and IC valve. The colonoscopy was performed without difficulty. The patient tolerated the procedure well. The quality of the bowel preparation was good. Findings: The perianal and digital rectal examinations were normal. The terminal ileum contained multiple small ulcers. No bleeding was present. Biopsies were taken with a cold forceps for histology. Verification of patient identification for the specimen was done by the physician and nurse using the patient's name and medical record number. Estimated blood loss was minimal. The entire examined colon appeared normal on direct and retroflexion views. Impression: - Multiple ulcers in the terminal ileum c/w small bowel Crohn's disease. Biopsied. - The entire examined colon is normal on direct and retroflexion views. Recommendation: - Await pathology results. - I recommend starting a biologic as an out patient for disease control and management of sequelae. - Return patient to [facility] for ongoing care. David Szymanski M.D. David Szymanski MD 05/12/2021 10:58:13 AM This report has been signed electronically. Note Initiated On: 05/12/2021 10:25 AM Number of Addenda: 0 I attest to the content of the Intraoperative Record and orders documented therein, exceptions below {[id number]}
--- NOTE | 2021-05-12 11:27 | Communication Note ---
Date of Service: May 12, 2021 Colonoscopy reviewed. Multiple ulcers in the terminal ileum c/w small bowel Crohn's disease. Recommend diet as tolerated. Can be discharged home on Prednisone 40 mg daily x 2 weeks then decreasing by 5 mg weekly. Can use Bentyl 10 mg three times daily PRN pain. Pending review of biopsies, consider humira vs remicade. Will need OP GI follow up in 1-2 weeks.
--- NOTE | 2021-05-12 11:47 | Anesthesiology Progress Note ---
Date of Service May 12, 2021 Anesthesia Post Procedure Vital Signs Vital Signs: Temp Pulse Resp BP BP Pulse Ox 05/12/21 11:34 36.5 C 75 14 93/56 L 99 05/12/21 11:20 63 18 92/49 L 111 H 05/12/21 11:05 54 L 18 92/49 L 98 05/12/21 10:50 67 18 95/56 L 99 05/12/21 09:39 35.8 C L 78 18 125/86 98 05/12/21 08:22 36.4 C L 71 16 104/66 96 05/11/21 22:11 36.7 C 73 15 118/73 99 05/11/21 14:00 36.8 C 72 18 110/74 98 Pain Intensity Lower Abdomen: Pain Intensity: 4 Transfer of Care Handoff Completed per policy Notes Mental Status: alert / awake / arousable Patient Amnestic to Procedure: Yes Nausea / Vomiting: adequately controlled Pain: adequately controlled Airway Patency, RR, SpO2: stable & adequate BP & HR: stable & adequate Hydration State: stable & adequate Anesthetic Complications: no major complications apparent
[2021-05-12] MEDS: D5W AND NSS 1,000 ML IV SCH (11:48)
--- NOTE | 2021-05-12 14:33 | Discharge Summary ---
Date of Service May 12, 2021 Admission HPI Per Admitting Provider pt with hx of abdominal pain and abnormal CT of intestine for colonoscopy Principal Diagnosis Small Bowel Crohn's Disease Discharge Exam PHYSICAL EXAM General Appearance: WDWN in NAD who is A&O x 3 HEENT: Head is normocephalic/atraumatic; Hearing grossly intact; Mucous membranes moist Neck: Supple; Trachea midline Heart: RRR with no M/G/R Lungs: CTA in all lung tapia bilaterally; Respirations unlabored; Neg accessory muscle use Abdomen: Soft, non-tender, non-distended; Positive BS x 4 quadrants Extremities: Neg cyanosis or edema Neurological: Speech clear; Gross motor/sensory function intact; Neg focal neurologic deficits Psychiatric: Appropriate mood/affect Skin: Normal Color; Warm/Dry Discharge Data Allergies Allergy/AdvReac Type Severity Reaction Status Date / Time apple Allergy Severe SEE COMMENT Verified 05/12/21 09:38 carrot Allergy Severe SEE COMMENT Verified 05/12/21 09:38 celery Allergy Severe SEE COMMENT Verified 05/12/21 09:38 hoyt Allergy Severe SEE COMMENT Verified 05/12/21 09:38 kiwi Allergy Severe SEE COMMENT Verified 05/12/21 09:38 tree nut Allergy Severe SEE COMMENT Verified 05/12/21 09:38 pollen extracts Allergy Intermediate ITCHY Verified 05/12/21 09:38 EYES, SNEEZING, CONGESTION shellfish derived Allergy Unknown POSITIVE Verified 05/12/21 09:38 ALLERGY TEST A SMALL CHILD Consultations 05/10/21 20:11 ED Decision to Admit Stat 05/10/21 23:40 Consult Gastroenterology Routine Procedures Performed Operation Date: 05/12/21 16:30 Actual Procedures p Colonoscopy Biopsy Cytology - David Szymanski MD Ordered Studies KUB X-Ray 05/10/21 14:46 KUB CLINICAL HISTORY: Generalized abdominal pain. Constipation. FINDINGS: 2 AP supine abdominal radiographs are obtained. No prior studies are available for comparison at the time of dictation. There is a nonobstructed abdominal bowel gas pattern. No significant fecal retention is seen throughout the colon. No evidence of intraperitoneal free air is seen on these supine images. There is no radiographic evidence of nephrolithiasis. An indeterminant 2.2 cm radiodensity projects over the right upper quadrant overlying the expected location of the adrenal gland. The bony structures appear intact. IMPRESSION: 1. No acute abnormality is identified. 2. A 2.2 cm calcification projects over the right upper quadrant overlying the expected location of the adrenal gland. This could represent an adrenal calcification, or possibly hyperdense ingested material. Clinical correlation will be required. Consider a follow-up radiograph in several days' time for reevaluation. Electronically signed by: Erich Lima M.D. 05/10/2021 3:23 PM Abdomen/Pelvis CT 05/10/21 16:08 CT abd pelvis oral and IV con CLINICAL HISTORY: lower abd pain COMPARISON STUDY: No previous studies for comparison. CT DOSE: 351.71 mGy.cm TECHNIQUE: Standard CT of the Abdomen and Pelvis was performed with IV contrast. A dose lowering technique was utilized adhering to the principles of ALARA. Contrast Volume: Optiray 320, 93 ml. The patient received oral contrast. FINDINGS: Lung base: The lung bases are clear. Abdominal cavity: There is no evidence for abdominal mass, adenopathy or ascites. Liver: There is homogeneous attenuation of the liver parenchyma. There is no evidence for enhancing mass lesion. Spleen: There is homogeneous attenuation of the splenic parenchyma. There is no enhancing mass lesion. Pancreas: There is homogeneous attenuation of the pancreatic parenchyma. There is no evidence for mass lesion or peripancreatic fluid collection. Gall Bladder: The gallbladder is well distended with no evidence for intraluminal calculi, wall thickening or pericholecystic edema. Adrenal glands: There is abnormal calcification of the right adrenal gland when compared to the left. There is no evidence for enhancing mass lesion. Kidneys: There is homogeneous attenuation of the renal parenchyma bilaterally. There is no evidence for renal calculus or hydronephrosis. There is no evidence for enhancing mass. Bowel: Oral contrast present within the stomach, throughout the small bowel and into the cecum. There is very prominent mucosal thickening present involving the distal 15 cm of the distal and terminal ileum. These findings are most characteristic of Crohn's disease. The remaining bowel loops are normally placed within the abdomen and pelvis without evidence for dilatation or obstruction. There is no evidence for mass lesion. There are no other inflammatory changes present. There is no evidence for free air. There is a normal appendix in the right lower quadrant. Bladder: The bladder is within normal limits with no evidence for focal mass, calculus or diverticulum. : There is no evidence for pelvic mass or adenopathy. There is small to moderate amount free fluid seen within the cul-de-sac which is most likely physiologic. There are cystic changes of the ovaries bilaterally. Vasculature: There is no evidence for aneurysmal dilatation of the abdominal aorta. Osseous structures: There is no acute osseous pathology. IMPRESSION: 1. Diffuse mucosal thickening involving the distal 15 cm of the distal and terminal ileum with the findings most characteristic of the presence of Crohn's disease. 2. Normal appendix. 3. Additional nonacute findings are delineated above. ACT 112: Negative or not required by law. Electronically signed by: Gm Hyatt M.D. 05/10/2021 7:27 PM Hospital Course (1) Crohn disease: - Presented with chronic diarrhea and worsening abdominal pain - CT with diffuse mucosal thickening involving the distal 15 cm of the distal and terminal ileum which suggested Crohn's - Colonoscopy on 05/12 by Ranjeet PERRY -- Multiple ulcers in the terminal ileum consistent with small bowel Crohn's disease -- Biopsies obtained and pending - Current plan is to do a slow taper of Prednisone - Start at 40 mg daily x 14 days then reduce by 5 mg every 7 days until complete - Rx also provided for Pepcid daily and Bentyl PRN - Multiple information packets supplied on dietary considerations and basic information in regards to Crohn's disease. Discussed verbally as well with patient and her mom - Ranjeet PERRY to arrange outpatient follow-up - IBD panel pending; stool PCR negative - Anticipate starting a biologic as outpatient Total Time Total Time Spent Total Time Spent (In Minutes): Spent greater than 30 minutes preparing patient for discharge. This includes discussion with patient/family, assessment, intervention, medication reconciliation, and coordination of care. Discharge Plan Discharge Items Patient Disposition: Home - Self-Care Reason For Visit: ABDOMINAL PAIN, POSSIBLE CHROHN'S DISEASE Discharge Diagnosis: Small Bowel Crohn's Disease Activity: Resume your previous activity Non-emergency contact: Primary Care Provider and Management Rep Call non-emergency contact if: you have any medication questions, your symptoms worsen and you have a fever Follow-up/Referrals: David Szymanski MD [Physician] - (Call in next 5-7 days if you do not here from their office) PCP,NO [Primary Care Provider] - Diet: Low Fiber Addtl Attending Provider Instructions: Crohn's Disease: - You were admitted to the hospital due to diarrhea and abdominal pain that was worsening. - You had a CAT scan of the abdomen that showed thickening of the ileum which is part of the small bowel - You had a colonoscopy on 05/12 that showed multiple ulcers in the terminal ileum which is consistent with small bowel Crohn's disease -- Biopsies were performed on the tissue to get a better look at the cells and will take a few days to come back. The GI doctors will follow-up with you on this - Please read through the information sheets in regards to Crohn's disease and how to manage this. This also includes some dietary recommendations to follow. Of course, if you know certain foods bother you normally it would be best to continue to avoid those foods. - For mild pain would recommend Tylenol only. Avoid medications called NSAIDs like Ibuprofen/Advil/Naproxyn/Motrin/Aspirin etc. Especially while also on steroids (Prednisone). If Tylenol does not help please call the GI doctors to see about alternative options. After the flair they may allow for intermittent dosing of NSAIDs but would recommend avoiding if you can. - We will also send a prescription for Bentyl to take for discomfort as needed - You will be on a steroid taper as follows -- Prednisone 40 mg daily x 14 days -- Prednisone 35 mg daily x 7 days -- Prednisone 30 mg daily x 7 days -- Prednisone 25 mg daily x 7 days -- Prednisone 20 mg daily x 7 days -- Prednisone 15 mg daily x 7 days -- Prednisone 10 mg daily x 7 days -- Prednisone 5 mg daily x 7 days - Will also send a prescription to Famotidine. This is an acid reducing medication to try and help with any burning or reflux symptoms especially while on steroids for an extended period of time. This can be bought over the counter if it is cheaper than using insurance. -- Would recommend Famotidine by either an hour before or an hour after the steroid to prevent issue with absorption - The GI team ([facility]) will call you with a follow-up appointment. Their information will be in the discharge instructions. Please call their office if you have not heard from them in the next 5-7 days Pending Studies at Discharge: Yes Studies:: Colonoscopy Biopsies and inflammatory bowel disease panel Stand-Alone Forms: My real[employer], Work/School Release, Smoking Cessation Medications and DC Order Prescriptions: New prednisone 10 mg tablet 10 mg PO DIRECTED Qty: 154 RF: 0 dicyclomine 10 mg capsule 10 mg PO TID PRN (Reason: abdominal pain) 14 Days Qty: 42 RF: 0 famotidine [Pepcid] 20 mg tablet 20 mg PO DAILY 30 Days Qty: 30 RF: 1 Discharge Orders: Discharge Order (Routine); Ordered 05/12/21 Ordered By: Marilin Contreras/Other Patient Handouts: What Is Crohn's Disease, Crohns Disease Dc, Crohns Disease Lifestyle Changes, Managing Crohn's Disease: Medicines, ED Crohn's Disease Admission Data Admit Date/Time: 05/10/21 22:58 Attending Provider: David Gaston Admit Provider: Marry Stoner Primary Care Provider: PCP,NO Other Providers: Michael Mcgill ; Samantha Jaffe Other Interventions: Discharge Summary Assessment (RN) Last Done: 05/12/21 14:36 Coding Level of Care Code D/C DAY MANAGEMENT >30 MINS Diagnoses Crohn disease K50.90
[2021-05-15 15:26] LABS: ANCA Screen Negative (Negative); Myeloperoxidase Ab <1.0 AI (<1.0); Proteinase-3 AB <1.0 AI (<1.0)
== END 2021-05-12 15:34 | disposition home or self-care (01) ==
LOC: ED 14:37 → 3E 22:58 → SUATTDRO 22:58 → INTOOBSV 22:58 → 3E 23:15
DX: K50.90 Crohn's disease, unspecified, without complications; Z91.018 Allergy to other foods; Z91.048 Other nonmedicinal substance allergy status; Z20.822 Contact with and (suspected) exposure to COVID-19; R93.5 Abnormal findings on diagnostic imaging of other abdominal regions, including retroperitoneum; K63.3 Ulcer of intestine; Z91.013 Allergy to seafood